=== PATIENT | male | born 1945 | race Caucasian/White ===

== ENCOUNTER 2022-09-03 11:26 | Emergency (ER) | payer MEDICAID ==
[~2022-09-03] VITALS: Ht 180.3 cm; Wt 96.4 kg
[2022-09-03] MEDS ORDERED: KETOROLAC TROMETHAMINE 60 MG/2 ML VIAL IM ONE (14:00)
[2022-09-03] MEDS ORDERED: DIAZEPAM 5 MG TABLET PO ONE (14:00)
[2022-09-03 15:05] VITALS: BP 116/69
== END 2022-09-03 15:24 | disposition home or self-care (01) ==
LOC: EMS 11:27
DX: M53.3 Sacrococcygeal disorders, not elsewhere classified (principal); E11.9 Type 2 diabetes mellitus without complications; E78.00 Pure hypercholesterolemia, unspecified; I10 Essential (primary) hypertension; G89.29 Other chronic pain
CPT/HCPCS: 99285; 96372; J1885

== ENCOUNTER 2025-03-21 12:30 | Inpatient (IN) | payer MEDICAID ==
[~2025-03-21] VITALS: Ht 185.4 cm; Wt 85.0 kg
[2025-03-21] MEDS ORDERED: FINA5TAB41 PO (12:47)
[2025-03-21] MEDS ORDERED: ATOR-2 PO (12:47)
[2025-03-21] MEDS ORDERED: METF-446 PO (12:47)
[2025-03-21] MEDS ORDERED: DICL100G60 TP (12:47)
[2025-03-21] MEDS ORDERED: TAMS0.4C94 PO (12:47)
[2025-03-21] MEDS ORDERED: GABA-1181 PO (12:47)
[2025-03-21] MEDS ORDERED: LISI20TA24 PO (12:47)
[2025-03-21] MEDS ORDERED: CARB1TAB41 PO (12:47)
[2025-03-21] MEDS ORDERED: IOHEXOL 350 MG/ML 100 ML VIAL ONE (13:20)
[2025-03-21] MEDS: MORPHINE SULFATE 2 MG/ML SYRINGE IVP ONE ×2 (13:29→15:15)
[2025-03-21 13:50] LABS: BASOPHILS % (AUTO) 0.6 % (0.0-2.0); HEMATOCRIT 42.9 % (41-53); HEMOGLOBIN 14.7 g/dL (13.5-17.5); LYMPHOCYTES # (AUTO) 0.7 K/uL (1.0-4.8); LYMPHOCYTES % (AUTO) 9.5 % (22.0-44.0); MEAN CORPUSCULAR HEMOGLOBIN 31.3 pg (26.0-34.0); MEAN CORPUSCULAR HGB CONC 34.4 G/dL (31.0-37.0); MEAN CORPUSCULAR VOLUME 91 fL (80-100); MONOCYTES # (AUTO) 0.4 K/uL (0.1-1.0); MONOCYTES % (AUTO) 5.8 % (2.0-9.0); NEUTROPHILS # (AUTO) 6.3 K/uL (1.8-7.7); NEUTROPHILS % (AUTO) 83.1 % (40.0-70.0); PLATELET COUNT (AUTO) 186 K/uL (150-450); RED BLOOD CELL COUNT(AUTO) 4.71 MIL/uL (4.50-5.90); RED CELL DISTRIBUTION WIDTH 13.7 % (11.5-14.5); WHITE BLOOD COUNT (AUTO) 7.5 K/uL (4.5-11.0)
[2025-03-21 14:01] LABS: APPEARANCE,URINE TURBID (CLEAR); BILIRUBIN,URINE NEGATIVE (NEGATIVE); CALCIUM, TOTAL 8.9 mg/dL (8.8-10.5); COLOR,URINE YELLOW (YELLOW); CREATININE 1.25 mg/dL (0.60-1.30); GLUCOSE, URINE (UA) NEGATIVE (NEGATIVE); KETONES,URINE TRACE mg/dL (NEGATIVE); LEUKOCYTE ESTERASE ,URINE LARGE (NEGATIVE); NITRATE,URINE POSITIVE (NEGATIVE); OCCULT BLOOD,URINE MODERATE (NEGATIVE); PH,URINE 5.5 (5.0-8.0); POTASSIUM 3.9 mmol/L (3.5-5.1); PROTEIN,URINE 100-200,SEE CONFIRM mg/dL (NEGATIVE); SPECIFIC GRAVITIY, URINE 1.018 (1.003-1.030); UROBILINOGEN,URINE <=1.0 mg/dL (<=1.0)
[2025-03-21 14:07] LABS: ALBUMIN 3.5 g/dL (3.4-5.0); BILIRUBIN,DIRECT 0.3 mg/dL (0.00-0.20); BILIRUBIN,TOTAL 1.3 mg/dL (0.1-1.0); TOTAL PROTEIN, SERUM 7.4 g/dL (6.4-8.2)
[2025-03-21 14:08] LABS: SULFOSALICYLIC ACID,URINE 2+ (Negative)
[2025-03-21 14:09] LABS: BACTERIA,URINE Many /HPF (None Seen); WBC,URINE >100 /HPF (0-5)
[2025-03-21] MEDS: CefTRIAXone 1 GM/DEXTROSE 50 ML IV ONE (14:58)
[2025-03-21 21:30] VITALS: BP 129/81; PULSE 89; RESP 18; TEMP 98.1; O2SAT 95
[2025-03-21] MEDS ORDERED: ALBUTEROL SULFATE 2.5 MG/0.5 ML NEB SOLUTION NEB PRN (22:30)
[2025-03-21] MEDS ORDERED: BISACODYL 10 MG RECTAL RECTAL SUPPOSITORY PR PRN (22:30)
[2025-03-21] MEDS ORDERED: ONDANSETRON HCL 4 MG/2 ML VIAL IVP PRN (22:30)
[2025-03-21] MEDS ORDERED: MAGNESIUM HYDROXIDE SUSPENSION 30 ML UDCUP PO PRN (22:30)
[2025-03-21] MEDS ORDERED: ZOLPIDEM TARTRATE 5 MG TABLET PO PRN (22:30)
[2025-03-21] MEDS ORDERED: IPRATROPIUM BROMIDE 0.5 MG/2.5 ML NEB SOLUTION NEB PRN (22:30)
[2025-03-21] MEDS: PHENAZOPYRIDINE HCL 200 MG TABLET PO ONE (23:24)
[2025-03-21] MEDS: HEPARIN SODIUM,PORCINE 5,000 UNITS/ML VIAL SQ SCH (23:24)
[2025-03-21] MEDS: MORPHINE SULFATE 2 MG/ML SYRINGE IVP PRN (23:35)
[2025-03-22 05:05] VITALS: BP 136/87; PULSE 87; RESP 19; TEMP 97.9; O2SAT 94
[2025-03-22 09:02] VITALS: BP 145/93; PULSE 75; RESP 19; TEMP 97.8; O2SAT 97
[2025-03-22] MEDS: ATORVASTATIN CALCIUM 40 MG TABLET PO SCH (09:09)
[2025-03-22] MEDS: FINASTERIDE 5 MG TABLET PO SCH (09:09)
[2025-03-22] MEDS: GABAPENTIN 300 MG CAPSULE PO SCH (09:09)
[2025-03-22] MEDS: TAMSULOSIN HCL 0.4 MG CAPSULE PO SCH (09:09)
[2025-03-22] MEDS: CARBIDOPA/LEVODOPA 25-100 MG ER TABLET PO SCH (09:09)
[2025-03-22] MEDS: lisinopriL 20 MG TABLET PO SCH (09:09)
[2025-03-22] MEDS: PHENAZOPYRIDINE HCL 200 MG TABLET PO SCH (09:10)
[2025-03-22] MEDS: PANTOPRAZOLE SODIUM 40 MG DR TABLET PO SCH (09:10)
[2025-03-22] MEDS ORDERED: SODIUM CHLORIDE 0.9% 500 ML IV ONE (15:11)
[2025-03-22] MEDS: HYDROCODONE/ACETAMINOPHEN 5-325 MG TABLET PO PRN (15:15)
[2025-03-22] MEDS: CefTRIAXone 1 GM/DEXTROSE 50 ML IV SCH (15:16)
[2025-03-22] MEDS ORDERED: DEXTROSE 50%-WATER 25 GM/50 ML SYRINGE IVP PRN (17:30)
[2025-03-22] MEDS: INSULIN LISPRO 100 UNITS/ML SQ PRN (21:11)
[2025-03-22 21:25] VITALS: BP 115/81; PULSE 70; RESP 18; TEMP 97.7; O2SAT 95
[2025-03-22 21:36] LABS: GLUCOMETER DEV NAME(LOC) 4E.2; GLUCOSE,POINT OF CARE 151 MG/DL (70-110)
[2025-03-22 21:36] LABS: GLUCOMETER DEV NAME(LOC) 4E.2; GLUCOSE,POINT OF CARE 154 MG/DL (70-110)
[2025-03-22 21:36] LABS: GLUCOMETER DEV NAME(LOC) 4E.2; GLUCOSE,POINT OF CARE 150 MG/DL (70-110)
[2025-03-23 05:10] VITALS: BP 128/88; PULSE 71; RESP 18; TEMP 98; O2SAT 94
[2025-03-23 06:21] LABS: GLUCOMETER DEV NAME(LOC) 4E.2; GLUCOSE,POINT OF CARE 124 MG/DL (70-110)
[2025-03-23 08:00] VITALS: BP 119/89; PULSE 63; RESP 19; TEMP 97.5; O2SAT 99
[2025-03-23] MEDS: ACETAMINOPHEN 325 MG TABLET PO PRN (08:49)
[2025-03-23 16:37] VITALS: BP 106/78; PULSE 75; RESP 19; TEMP 97.5; O2SAT 96
[2025-03-23 19:35] VITALS: BP 122/80; PULSE 75; RESP 19; TEMP 98.1; O2SAT 97
[2025-03-24 04:20] VITALS: BP 111/85; PULSE 78; RESP 20; TEMP 97.7; O2SAT 96
[2025-03-24 07:10] LABS: GLUCOMETER DEV NAME(LOC) 6N.1B; GLUCOSE,POINT OF CARE 112 MG/DL (70-110)
[2025-03-24 07:10] LABS: GLUCOMETER DEV NAME(LOC) 6N.1B; GLUCOSE,POINT OF CARE 132 MG/DL (70-110)
[2025-03-24 09:00] VITALS: BP 123/84; PULSE 80; RESP 18; TEMP 98.6; O2SAT 95
[2025-03-24] MEDS ORDERED: LEVO750T68 PO (09:23)
[2025-03-24] MEDS: TAMSULOSIN HCL 0.4 MG CAPSULE PO SCH (09:31)
[2025-03-24 10:12] LABS: BASOPHILS % (AUTO) 0.9 % (0.0-2.0); EOSINOPHILS % (AUTO) 2.9 % (1.0-6.0); HEMATOCRIT 43.6 % (41-53); HEMOGLOBIN 15.1 g/dL (13.5-17.5); LYMPHOCYTES % (AUTO) 21.9 % (22.0-44.0); MEAN CORPUSCULAR HEMOGLOBIN 31.6 pg (26.0-34.0); MEAN CORPUSCULAR HGB CONC 34.7 G/dL (31.0-37.0); MEAN CORPUSCULAR VOLUME 91 fL (80-100); MONOCYTES # (AUTO) 0.5 K/uL (0.1-1.0); MONOCYTES % (AUTO) 9.7 % (2.0-9.0); NEUTROPHILS # (AUTO) 3.1 K/uL (1.8-7.7); NEUTROPHILS % (AUTO) 64.6 % (40.0-70.0); PLATELET COUNT (AUTO) 207 K/uL (150-450); RED BLOOD CELL COUNT(AUTO) 4.78 MIL/uL (4.50-5.90); RED CELL DISTRIBUTION WIDTH 13.3 % (11.5-14.5); WHITE BLOOD COUNT (AUTO) 4.8 K/uL (4.5-11.0)
[2025-03-24 10:23] LABS: CREATININE 1.33 mg/dL (0.60-1.30); POTASSIUM 3.9 mmol/L (3.5-5.1)
[2025-03-24 10:27] LABS: ALBUMIN 3.1 g/dL (3.4-5.0); BILIRUBIN,TOTAL 0.8 mg/dL (0.1-1.0); TOTAL PROTEIN, SERUM 7.1 g/dL (6.4-8.2)
[2025-03-24 10:43] LABS: PROSTATE SPECIFIC ANTIGEN 2.05 ng/mL (0.00-4.00)
[2025-03-24 11:55] LABS: GLUCOMETER DEV NAME(LOC) 4E.2; GLUCOSE,POINT OF CARE 153 MG/DL (70-110)
[2025-03-24 11:55] LABS: GLUCOMETER DEV NAME(LOC) 4E.2; GLUCOSE,POINT OF CARE 164 MG/DL (70-110)
[2025-03-25 11:50] LABS: GLUCOMETER DEV NAME(LOC) 6N.1B; GLUCOSE,POINT OF CARE 117 MG/DL (70-110)
[2025-03-25 11:50] LABS: GLUCOMETER DEV NAME(LOC) 6N.1B; GLUCOSE,POINT OF CARE 117 MG/DL (70-110)
== END 2025-03-24 19:25 | disposition home or self-care (01) | DRG 463 ==
LOC: EMS 12:39 → EDH 15:30 → 4E 21:00
PROVIDERS: ADMIT Hospitalist; ATTEND Hospitalist
DX: N30.00 Acute cystitis without hematuria (principal); G20.A1 Parkinson's disease without dyskinesia, without mention of fluctuations; N12 Tubulo-interstitial nephritis, not specified as acute or chronic; E78.00 Pure hypercholesterolemia, unspecified; E11.9 Type 2 diabetes mellitus without complications; N50.82 Scrotal pain; I10 Essential (primary) hypertension; Z85.46 Personal history of malignant neoplasm of prostate
CPT/HCPCS: 74177; 76870; 80048; 80053; 80076; 81001; 81002; 82962; 83690; 84153; 85025; 87077; 87086; 87186; 96365; 96375; 96376; 99285; G0378; J0696; J1644; J2270; J7040